=== PATIENT | female | born 1940 | race Caucasian/White ===

== ENCOUNTER 2017-08-12 06:23 | Day surgery (SDC) | payer MEDICARE ==
[~2017-08-12] VITALS: Ht 154.9 cm; Wt 79.5 kg
[2017-08-12] MEDS ORDERED: IOHEXOL 350 MG/ML 50 ML BTL (for Cath Lab) OTHER ONE (06:24)
[2017-08-12 07:00] VITALS: BP 132/87; PULSE 67; RESP 20; O2SAT 95
[2017-08-12 07:36] LABS: AUTOMATED NEUTROPHIL # 5.9 TH/MM3 (1.8-7.7); BASOPHIL # 0.1 TH/MM3 (0-0.2); BASOPHIL % 0.7 % (0.0-2.0); EOSINOPHIL # 0.2 TH/MM3 (0-0.4); EOSINOPHIL % 2.5 % (0.0-4.0); HEMOGLOBIN 9.8 GM/DL (11.6-15.3); LYMPH % 22.6 % (9.0-44.0); MEAN CELL VOLUME 88.5 FL (80.0-100.0); MEAN CORPUSCULAR HEMOGLOBIN 30.9 PG (27.0-34.0); MEAN CORPUSCULAR HGB CONC 34.9 % (32.0-36.0); MONO % 7.1 % (0.0-8.0); MONOCYTE # 0.6 TH/MM3 (0-0.9); NEUT % 67.1 % (16.0-70.0); PLATELET COUNT 322 TH/MM3 (150-450); RED BLOOD COUNT 3.17 MIL/MM3 (4.00-5.30); RED CELL DISTRIBUTION WIDTH 14.2 % (11.6-17.2); WHITE BLOOD COUNT 8.9 TH/MM3 (4.0-11.0)
[2017-08-12 07:48] LABS: PROTHROMBIN TIME - PATIENT 10.1 SEC (9.8-11.6)
[2017-08-12 07:53] LABS: BICARBONATE 29.2 MEQ/L (21.0-32.0); CALCIUM 8.8 MG/DL (8.5-10.1); CREATININE 1.25 MG/DL (0.50-1.00)
[2017-08-12] MEDS ORDERED: HEPARIN-NS/PF FLUSH BAG 2,000 ML IV FLUSH ONE (08:15)
[2017-08-12] MEDS ORDERED: NITROGLYCERIN INJ 5 ML ONE (08:15)
[2017-08-12] MEDS ORDERED: HEPARIN SODIUM - IV 10,000 UNITS/10 ML VIAL ONE (08:15)
[2017-08-12] MEDS ORDERED: VERAPAMIL HCL 5 MG/2 ML VIAL ONE (08:15)
[2017-08-12] MEDS ORDERED: MIDAZOLAM HCL 2 MG/2 ML VIAL ONE (08:42)
[2017-08-12] MEDS ORDERED: MAGN400T24 PO (08:50)
[2017-08-12] MEDS ORDERED: ASPI-516 CHEW (08:50)
[2017-08-12] MEDS ORDERED: NIAC100T2 PO (08:50)
[2017-08-12] MEDS ORDERED: METO25TA3 PO (08:50)
[2017-08-12] MEDS ORDERED: PRIL20TA2 PO (08:50)
[2017-08-12] MEDS ORDERED: METF500T PO ×2 (08:50→09:18)
[2017-08-12] MEDS ORDERED: COQ150CA PO (08:50)
[2017-08-12] MEDS ORDERED: ZOCO20TA PO (08:50)
[2017-08-12] MEDS ORDERED: OMEGCAP PO (08:50)
[2017-08-12] MEDS ORDERED: HYDR25TA5 PO (08:50)
--- NOTE | 2017-08-12 09:15 | CATHPROC ---
[employer] HIS Report Study Information Study Number Admission Scheduled Start Study Start [id number] Aug 12 2017 6:23AM 08/12/2017 Aug 12 2017 8:03AM [place] [facility]iac Catheterization Admit Source Facility Department Other [facility] - Nutrition Associate Physician and Clinical Staff Initial Rob Ovalle Power Regulator Delano RN, Joce RecordHerve Pacheco,RT(R) Scrub Sapna Waterman ,RT(R) Procedures Performed Procedure Location (Site) Vessel Name Coronary Angiograms LCA Left Coronary Coronary Angiograms RCA Right Coronary L Heart Cath Wire insertion Radial (right) Radial Art. Equipment Time Correctional Probation Officer Description Size Mfg Part Number Used/Scraped TRANSDUCER, TRUWAVE [id number] 08:06 [employer] * Used W/STOCKCOCK *[id number] [id number] *[id number] [id number] *[id number] 08:06 [employer] PACK, CCL CUSTOM * Used *[id number] 08:06 [employer] SUPPORT, ARTERIAL ADULT [id number] *[id number] Used BAND, RADIAL COMPRESSION TR [id number] 09:06 [employer] MEDICAL 24CM Used SHORT 24 *[id number] 08:06 [employer] WIRE, EXCHANGE 260CM 3MMJ 260CM Used *[id number] 08:06 [employer]IFOLD, 4 PORT * Used *[id number] 08:06 [employer] OMNIPAQUE, 350 MG, 150ML 150ML [id number] Used [id number] 08:06 [employer] BLANKET,WARM AIR CCL * Used *[id number] SHEATH, FR6 TRANSRADIAL RM*[id number] 08:06 [employer] MEDICAL FR 6 Used SLENDER 10CM *[id number] History: Current Medications Medication Dosage/Unit Route Frequency Last Date/Time Taken Glucophage LOPRESSOR Zocor History: Allergies Allergy Reaction No Known Allergies History: Risk Factors Family History of Hypertension Dyslipidemia Previous ND Previous Heart Failure Premature CAD Yes Yes Yes No No Prior Valve Prior PCI Prior CABG Surgery No No No Cerebrovascular Peripheral Artery Chronic Lung On Dialysis Diabetes Diabetes Therapy Disease Disease Disease No No No Yes Yes Oral History: Risk Factors Selection Items Diabetes Hyperlipidemia Obesity History: Symptoms/Diagnosis Selection Items Chest pain History: Stress Tests Stress or Imaging Studies Performed Yes Standard Exercise Stress Test No Stress Echo No Stress Test SPECT Stress Test SPECT Result Stress Test SPECT Ischemia Risk/Extent Yes Positive Intermediate Stress Test CMR No Cardiac CTA Coronary Calcium Score No No History: Other Disease Selection Items HTN History: Other Current Smoker Method Quit Packs a Day Years Used Pack Years No Cigarettes 22 Years Ago 2 40 80 Labs Hgb (g/dl) Hct (%) RBC (MIL/MM3) WBC (l/cumm) Platelets (thousands) 11.60-17.00 35.00-51.00 4.00-5.90 4.00-11.00 150.00-450.00 9.8 28 3.1 8.9 322 Glucose (mg/dl) BUN (mg/dl) Creatinine (mg/dl) BUN:Creatinine (1:x) 74.00-106.00 7.00-18.00 0.50-1.30 10.00-20.00 102 19 1.2 15.8 Na (meq/l) K (meq/l) Cl (meq/l) CO2 (mmol/L) Ca (mg/dl) 136.00-145.00 3.50-5.10 98.00-107.00 21.00-32.00 8.50-10.10 141 4.2 103 29.2 8.8 PT (sec) PTT (sec) INR (PTT:PT) 9.80-11.60 24.30-30.10 0.90-1.10 10.1 20.2 1 CPK-MB (ng/ML) 0.50-3.60 Not Drawn Medication Medication Total Dose (Bolus/Oral) Medication Total Dosage/Unit 1% XYLOCAINE 5 mL FENTANYL 25 mcg RADIAL COCKTAIL 5 mL (Bolus) VERSED 0.5 mg Medications (Bolus/Oral) Medication Time Given Dosage/Unit Administered By Reason VERSED 08/12/2017 8:51:57 AM 0.5 mg Joce Wick RN 0.5 mg VERSED given in lab by Joce Wick RN in Right Forearm via Peripheral IV. FENTANYL 08/12/2017 8:52:12 AM 25 mcg Joce Wick RN 25 mcg FENTANYL given in lab by Joce Wick RN in Right Forearm via Peripheral IV. 1% XYLOCAINE 08/12/2017 8:52:22 AM 5 mL Rob Wright 5 mL 1% XYLOCAINE given in lab by Rob Wright in Right Radial via Subcutaneous. Ntg 200mcg Verapamil 2.5mg Heparin RADIAL COCKTAIL 08/12/2017 8:54:42 AM 5 mL (Bolus) Rob Wright 2000U 5 mL (Bolus) RADIAL COCKTAIL given in lab by Rob Wright via Radial. Using [Solution Name]. Meenu espinoza: Ntg 200mcg Verapamil 2.5mg Heparin 3200U. Medication (Drip) Medication Time Given Dosage/Unit Concentration/Unit Diluent (ml) Solutio n IV Solutions 08/12/2017 8:30:27 AM 0 mL (IV) 500 NaCl .9 IV Solutions given in lab by Joec Wick RN in Right Forearm via Peripheral IV. Pump/Drip Flow = 20 ml/hr using NaCl .9. Initial Case Assessment Cardiovascular HR Rhythm NIBP Chest Pain 70 Sinus 148/24 0 Edema Present Skin color Skin None Normal Warm Dry Circulatory - Right Pulses Dorsalis Pedis Femoral Radial 2 2 2 Scale (0,1,2,3,4,d) Scale (0,1,2,3,4,d) Neurological State Oriented to time-place- Alert Moves all extremities person Respiration - General Respiration Rate SpO2 (%) O2 (lpm) (B/min) 10 95 0 Final Case Assessment Cardiovascular HR Rhythm NIBP Chest Pain 72 Sinus 126/73 0 Edema Present Skin color Skin None Normal Warm Dry Circulatory - Right Pulses Dorsalis Pedis Femoral Radial 2 2 2 Scale (0,1,2,3,4,d) Scale (0,1,2,3,4,d) Neurological State Oriented to time-place- Alert Moves all extremities person Respiration - General Respiration Rate SpO2 (%) O2 (lpm) (B/min) 12 95 0 Chronological Log Time Study Chronological Log 8:27:30 Patient arrived via Bed. 8:30:10 Patient Name, D.O.B, / Armband Verified By R.N. 8:30:12 Consent signed by the physician and the patient and verified by the Nutrition Associate staff. 8:30:12 Pre-op and post- op instructions given; patient acknowledges understanding of instructions. 8:30:13 Verbal Stimulation=2 Physical Stimulation=2 Airway=2 Respiration=2 TOTAL=8. (0=absent, 1=figueroa ited, 2=present) 8:30:14 Presedation assessment performed by Nutrition Associate RN. 8:30:16 Allens test performed on the right radial and ulnar artery. 8:30:18 Patient has been NPO for More than 6Hrs. 8:30:19 Skin Breakdown- none per patient. 8:30:20 Patient Warmer Placed on the Table. 8:30:21 Disposable Defibrillator Pads Placed On Patient. 8:30:25 Yudi Prominences Protected 8:30:26 A # 20 IV was noted in the Forearm (right). Grade = 0 IV Solutions given in lab by Joce Wick RN in Right Forearm via Peripheral IV. Pump/Drip Flow = 20 ml/hr using NaCl 8:30:27 .9. 8:30:28 History and physical on the chart or being dictated. Vitals capture started with the following parameters, Patient=Adult, Interval=5 min, Initial Pre pgrbs=394 mmHg, 8:33:34 Deflation Rate=5 mmHg, Cuff placed on Unknown 8:34:16 HR=79 bpm, IJPV=872/124 mmhg, SpO2=99.0 %, Resp=14 B/min, Pain=0, Vinita=10, Abernathy=2 8:35:05 NIBP STAT measurement started. 8:36:23 HR=70 bpm, FHLV=825/79 mmhg, SpO2=99.0 %, Resp=21 B/min, Pain=0, Vinita=10, Abernathy=2 8:37:50 Reference ECG taken Assessment: Initial Case, HR=70 BPM, Rhythm=Sinus, OMPF=752/24 mmhg, Chest Pain=0, Edema=None, Color=Normal, Skin = Warm, Dry 8:39:17 Right Pulses: Mazin Ped=2, Femoral=2, Radial=2 Neurological: State=Alert, Ox3, CORTEZ Respiration: Resp=10 B/min, SpO2=95 %, O2=0 lpm 8:39:21 HR=70 bpm, INPC=491/91 mmhg, SpO2=94.0 %, Resp=10 B/min, Pain=0, Vinita=10, Abernathy=2 8:41:00 Right Radial and groin(s) prepped with 2% chlorhexidine, and draped after a 3 min. waiting t vick. 8:44:18 HR=65 bpm, BLMS=070/88 mmhg, SpO2=96.0 %, Resp=10 B/min, Pain=0, Vinita=10, Abernathy=2 8:44:50 MD arrived. 8:46:21 Pressure channel 2 zero failed. 8:46:32 Pressure channel 2 zeroed. 8:48:02 Pressure channel 2 zeroed. 8:48:21 Pressure channel 2 zeroed. 8:49:21 HR=69 bpm, RUSD=620/82 mmhg, SpO2=96.0 %, Resp=10 B/min, Pain=0, Vinita=10, Abernathy=2 Time Out. Correct patient, correct procedure, correct physician, power injector loaded, or not l oaded with contrast with 8:50:18 surgical team present. Time Out Concurred by MD and individual staff in procedure. 8:51:45 Case Start 8:51:57 0.5 mg VERSED given in lab by Joce Wick RN in Right Forearm via Peripheral IV. 8:52:12 25 mcg FENTANYL given in lab by Joce Wick RN in Right Forearm via Peripheral IV. 8:52:22 5 mL 1% XYLOCAINE given in lab by Rob Wright in Right Radial via Subcutaneous. 8:53:41 Access site was Radial Artery. 8:54:20 HR=77 bpm, LGJJ=331/89 mmhg, SpO2=95.0 %, Resp=16 B/min, Pain=0, Vinita=10, Abernathy=2 A SHEATH, FR6 TRANSRADIAL SLENDER 10CM FR 6 was advanced into the Radial (right) using the Perc utaneous 8:54:21 technique. 5 mL (Bolus) RADIAL COCKTAIL given in lab by Rob Wright via Radial. Using [Solution Na me]. Reason: Ntg 8:54:42 200mcg Verapamil 2.5mg Heparin 3200U. A JR 4.0 INFINITI CATHETER FR 5 was advanced over a wire. OMNIPAQUE, 350 MG, 150ML 150ML was us ed for 8:55:49 injections. Recorded Pressure: LV, HR=74, Condition=Condition 1 8:56:59 (Left Ventricle) LV 130/4/13 Recorded Pressure: LV, Ao, HR=69, Condition=Condition 1 8:57:23 (Left Ventricle) LV 136/9/15, (Aorta) Ao 107/66/83 8:58:17 The RCA was injected and visualized at various angles. OMNIPAQUE, 350 MG, 150ML 150ML used . Recorded Pressure: Ao, HR=78, Condition=Condition 1 8:58:45 (Aorta) Ao 115/70/91 After removing the current catheter a JL 3.5 INFINITI CATHETER FR 5 was advanced over a WIRE, E XCHANGE 260CM 8:58:59 3MMJ 260CM. 8:59:21 HR=81 bpm, NMUP=449/71 mmhg, SpO2=93.0 %, Resp=17 B/min, Pain=0, Vinita=10, Abernathy=2 9:03:16 The LCA was injected and visualized at various angles. OMNIPAQUE, 350 MG, 150ML 150ML used . 9:04:14 HR=72 bpm, YKRB=264/73 mmhg, SpO2=94.0 %, Resp=11 B/min, Pain=0, Vinita=10, Abernathy=2 9:04:27 A WIRE, EXCHANGE 260CM 3MMJ 260CM was inserted via Radial (right). 9:04:36 Catheter was removed 9:04:38 Wire removed 9:05:26 Case End Radial Compression Device Used. 10 mLs of air placed in BAND, RADIAL COMPRESSION TR SHORT 24 24 CM. Affected 9:06:16 hand 95 % O2 saturation. Assessment: Final Case, HR=72 BPM, Rhythm=Sinus, PNRX=741/73 mmhg, Chest Pain=0, Edema=None, Color=Normal, Skin = Warm, Dry 9:07:00 Right Pulses: Mazin Ped=2, Femoral=2, Radial=2 Neurological: State=Alert, Ox3, CORTEZ Respiration: Resp=12 B/min, SpO2=95 %, O2=0 lpm 9:08:04 No case complications noted. 9:08:06 Cine recording checked. 9:08:42 Bedside Report will be given. 9:08:54 A Left Heart Cath was performed. 9:09:17 HR=70 bpm, HOVE=385/75 mmhg, SpO2=95.0 %, Resp=15 B/min, Pain=0, Vinita=10, Abernathy=2 9:13:49 Vitals capture stopped. 9:15:43 Patient moved to stretcher End Study - Contrast Media Used In Study Contrast Total Opened (mL) Total Used (mL) Total Wasted (mL) Omnipaque 150 40 110 End Study - Maximum Contrast Load Max Contrast Load (mL) 331.3 End Study - Radiation Exposure Fluoro Time (minutes) 2.6 End Study - Patient Disposition Complications Transferred To Interventional Outcome No Outpatient Bed No attempt made
[2017-08-12] MEDS ORDERED: MISC INFORMATION XX ONE (09:30)
--- NOTE | 2017-08-12 09:50 | MA ---
cc: Rob Wright DO DATE: 08/12/2017 DATE OF PROCEDURE: 08/12/2017 PROCEDURE: Left heart catheterization, coronary angiogram, moderate sedation 15 minutes. PREPROCEDURE DIAGNOSIS: Abnormal stress test. POSTPROCEDURE DIAGNOSIS: Mild coronary artery disease. MEDICATIONS: Versed 0.5 mg, fentanyl 25 mcg, nitro 200 mcg, verapamil 2.5 mg, heparin 3200 units. CONTRAST USED: 40 mL FLUOROSCOPY: 2.6 minutes. MODERATE SEDATION: 15 minutes. FRAILTY SCORE: 4. ESTIMATED BLOOD LOSS: 10 mL. PROCEDURAL SUMMARY: Desi Lee is a pleasant 76-year-old female who sees my partner, Dr. Florez, in the office and underwent stress testing which showed anterior ischemia. Because of this, she was recommended cardiac catheterization. Risks, benefits and alternatives were explained to her and she consented to such. She was brought to the lab and prepped in the usual sterile fashion. The right radial artery was accessed using a modified Seldinger technique and placement of a 5/6 Thai Slender Sheath. This was easily aspirated and flushed. A JR4 was advanced over a J-wire to the ascending aorta and across the aortic valve for measurement of left ventricular pressure. This was pulled back across the aortic valve showing no significant gradient of aortic stenosis. JR4 was used for selective angiography of the right coronary artery system. This was exchanged out for a JL3.5, which was used for selective angiography of the left coronary artery system. The JL3.5 was removed over a J-wire. A radial band was placed over the arteriotomy site for hemostasis. The patient left the woods laborer cardiovascularly stable. FINDINGS: LEFT MAIN: Normal-sized vessel with no significant disease. It bifurcates into an LAD and circumflex. LAD: Normal-sized vessel with mild tortuosity throughout. It has a 10% lesion in the proximal portion. Distally after the takeoff of the second diagonal it has at most 30% disease. LEFT CIRCUMFLEX: Normal-sized vessel with a 20% lesion in the proximal portion. Distally, it gives off 2 obtuse marginals with no significant disease. RCA: Normal-sized vessel with mild luminal irregularities throughout the mid-portion. Distally it supplies a PDA as well as a small posterolateral branch with no significant disease. LVEDP: 15. IMPRESSION: 1. Abnormal stress test. 2. Mild coronary artery disease. RECOMMENDATIONS: 1. Ms. Lee appears to have mild coronary artery disease and will be recommended continued medical therapy. 2. She will followup with Dr. Florez as previously scheduled. Thank you for allowing me to see Desi Lee. If there are any questions, please do not hesitate to call. DO DEIDRA Manuel/VAHE , 09:23 AM , 09:50 AM
--- NOTE | 2017-08-12 16:53 | EKG ---
Date Performed: 08/12/2017 Time Performed: 07:32:56 PTAGE: 76 years EKG: Sinus rhythm . Normal ECG NO PREVIOUS TRACING DOCTOR: Bobby Hunter Interpretating Date/Time 08/12/2017 16:25:36
== END 2017-08-12 13:00 | disposition home or self-care (01) ==
LOC: HDIC 06:23 → EDSEX 06:23 → HDOC 06:23
PROVIDERS: ATTEND Nuclear Medicine Nuclear Cardiology
DX: I25.10 Atherosclerotic heart disease of native coronary artery without angina pectoris (principal); J45.909 Unspecified asthma, uncomplicated; E11.9 Type 2 diabetes mellitus without complications; I10 Essential (primary) hypertension; Z01.818 Encounter for other preprocedural examination
CPT/HCPCS: 80048; 84702; 85025; 85610; 85730; 93005; 93458; 99152; C1769; C1893; J1644; J2250; J3010; Q9967